=== PATIENT | male | born 1975 | race Caucasian/White ===

== ENCOUNTER 2019-03-29 10:30 | Emergency (ER) | payer SELFPAY ==
[~2019-03-29] VITALS: Ht 160 cm; Wt 71.3 kg
[~2019-03-29 10:30] MED LIST: LORA1TAB PO
[2019-03-29 10:38] VITALS: Ht 160 cm; Wt 71.3 kg
[2019-03-29] MEDS ORDERED: LORAZEPAM 1 MG TAB PO ONE (11:00)
[2019-03-29 11:55] VITALS: BP 160/90; PULSE 82; RESP 18
== END 2019-03-29 11:56 | disposition home or self-care (01) ==
LOC: FTE 10:30
DX: F41.9 Anxiety disorder, unspecified (principal)
CPT/HCPCS: 93005